=== PATIENT | male | born 1980 | race Caucasian/White ===

== ENCOUNTER → 2023-03-17 15:54 | Outpatient (CLI) | payer OTHER, SELFPAY ==
--- NOTE | ~2023-03-17 | XR_ITS ---
EXAMINATION: XR wrist LT min 3V DATE: 03/17/2023 16:06 INDICATION: Left wrist pain TECHNIQUE: Posteroanterior, ulnar deviation, oblique, and lateral views of the left wrist were obtain ed. COMPARISON: none FINDINGS: Alignment is normal. No fracture. Joint spaces are normal. Soft tissues are unremarkable. IMPRESSION: 1. Negative left wrist radiographs. Reviewed, dictated and finalized at location A.
== END ==
PROVIDERS: PCP Nurse Practitioner Family; Visit Provider Nurse Practitioner Family
DX: M25.539 Pain in unspecified wrist (principal)
CPT/HCPCS: 73110

== ENCOUNTER 2023-04-02 15:55 | Outpatient (CLI) | payer OTHER, SELFPAY ==
--- NOTE | ~2023-04-02 | MR_ITS ---
EXAMINATION: MR wrist LT wo con DATE: 04/02/2023 17:18 INDICATION: Left wrist pain TECHNIQUE: Magnetic resonance imaging (MRI) of the left wrist was performed without intravenous contr ast. Sequences performed include axial PD-weighted FSE and PD-weighted FS FSE, coronal PD-weighted FS FSE and T1-weighted SE, and sagittal PD-weighted FS FSE and PD-weighted FSE. COMPARISON: None FINDINGS: Intrinsic ligaments: Partial tear of the dorsal component of the scapholunate ligament. The central membranous component a nd femoral component appear normal. The lunotriquetral ligament is normal. Triangular fibrocartilage complex (TFCC): Partial tears of the foveal attachment of the triangular fibrocartilage complex. There is also a part ial tear of the radial side of the dorsal radioulnar ligament. Triangular fibrocartilage including in cluding its foveal and radial attachments as well as the volar radioulnar ligament are normal. The ex tensor carpi ulnaris tendon sheath is normal. Extensor wrist: There is mild increased signal situated between the thickened tendon sheath of the extensor carpi uln bria tendon distal to the level of the ulnar styloid process with the extensor carpi ulnaris tendon i s also mildly thickened consistent with tendinopathy and mild associated tenosynovitis. There appears be a longitudinal split tear of the tendon with increased signal extending linearly from the center of the tendon to the periphery at the level of the ulnar styloid process. Extensor tendons of the wri st are otherwise normal. Flexor wrist: The flexor tendons of the wrist are normal. No abnormality in the carpal tunnel with normal median n erve. Guyon's canal: Guyon's canal including the ulnar nerve and artery are normal. Bones/other: Bone alignment is normal. Normal marrow signal. No fracture, erosions, avascular necrosis or abnormal marrow replacing process. Mild osteoarthritis at the left wrist joint with partial-thickness cartila ge loss with chondral surface regularity along the proximal articular surface of the lunate. Addition al mild osteoarthritis at the first carpometacarpal joint. Deep to the extensor digitorum longus tend ons is a 3 x 2 mm ganglion cyst located dorsal to the junction of the midcarpal joint and scapholunat e articulation. IMPRESSION: 1. Partial tear of the dorsal component of the scapholunate ligament. 2. Partial tears of the ulnar styloid attachment and radial attachments of the triangular fibrocartil age complex as well as the radial attachment of the dorsal radioulnar ligament. 3. Mild extensor carpi ulnaris tenosynovitis and tendinopathy with small longitudinal split tear at t he level of the ulnar styloid process. 4. Mild osteoarthritis at the first carpal metacarpal and wrist joints with moderate grade chondral m alacia along the proximal lunate. 5. Tiny ganglion cyst deep to the extensor digitorum longus tendons at the dorsum of the carpus. Reviewed, dictated and finalized at location A. IMPRESSION: 1. Partial tear of the dorsal component of the scapholunate ligament. 2. Partial tears of the ulnar styloid attachment and radial attachments of the triangular fibrocartilage complex as well as the radial attachment of the dorsa l radioulnar ligament. 3. Mild extensor carpi ulnaris tenosynovitis and tendinopathy with small longit udinal split tear at the level of the ulnar styloid process. 4. Mild osteoarthritis at the first carpal metacarpal and wrist joints with mod erate grade chondral malacia along the proximal lunate. 5. Tiny ganglion cyst deep to the extensor digitorum longus tendons at the dors um of the carpus.
== END 2023-04-02 15:56 | disposition home or self-care (01) ==
PROVIDERS: PCP Nurse Practitioner Family; Visit Provider Nurse Practitioner Family
DX: S66.912A Strain of unspecified muscle, fascia and tendon at wrist and hand level, left hand, initial encounter (principal); M19.042 Primary osteoarthritis, left hand; M67.432 Ganglion, left wrist; X58.XXXA Exposure to other specified factors, initial encounter
CPT/HCPCS: 73221

== ENCOUNTER 2025-02-13 10:14 | Emergency (ER) | payer OTHER, SELFPAY ==
--- NOTE | ~2025-02-13 | CT_ITS ---
CLINICAL INDICATION: Right flank pain COMPARISON: None. TECHNIQUE: Multiple contiguous axial images of the abdomen and pelvis were performed without the admi nistration of intravenous contrast The dose-length product (DLP) was 369.10 mGy-cm. Automated exposure control and iterative reconstruction technique were employed. FINDINGS/OBSERVATIONS: Visualized lower thorax: The bilateral lung bases are clear. The heart is of normal size, without pericardial effusion. Liver: The liver demonstrates homogeneous attenuation and is not enlarged. Gallbladder and biliary system: The gallbladder is distended, and otherwise unremarkable. Pancreas: Limited evaluation of the pancreas secondary to the lack of intravenous contrast. Spleen: The spleen demonstrates homogeneous attenuation and is not enlarged. Kidneys: Global enlargement of the right kidney with moderate hydroureteronephrosis extending to the distal ri ght ureter where a 4 mm calculus is present. This is just proximal to the right ureterovesicular junction. Nonobstructing 5 mm calculus within the lower pole of the right kidney. The left kidney and ureter are unremarkable. Adrenal glands: Unremarkable. Gastrointestinal tract: Trace fecal stasis within the colon. Appendix: The appendix is not definitively visualized. However, no pericecal inflammatory change is identified suggest the presence of acute appendicitis. Vasculature: Unremarkable. Lymph nodes: Limited evaluation without intravenous contrast. Pelvic structures: The bladder is only minimally distended, and otherwise unremarkable. The prostate gland is not enlarged. Body wall and musculoskeletal: No significant degenerative disease within the lower thoracic or lumbosacral spine. IMPRESSION: Right-sided hydroureteronephrosis secondary to a 4 mm calculus at the right UVJ. Reviewed, dictated and finalized at location A. IMPRESSION: Right-sided hydroureteronephrosis secondary to a 4 mm calculus at the right UVJ .
[2025-02-13 10:42] VITALS: BP 128/78; PULSE 87; RESP 18; TEMP 36.8; O2SAT 100
[2025-02-13 11:18] LABS: Basophils Percent Auto 0.2 % (0.2-1.2); Hematocrit 43.7 % (42.0-52.0); Hemoglobin 14.1 g/dL (14.0-18.0); Immature Granulocyte Absolute 0.03 K/mm3 (0.00-0.031); Immature Granulocyte Percent A 0.4 % (0-0.5); Lymphocytes Absolute Auto 1.01 K/mm3 (0.9-3.2); Lymphocytes Percent Auto 12.4 % (18.3-44.2); Mean Corpuscular HGB Conc 32.3 g/dl (32-36); Mean Corpuscular Hemoglobin 29.1 pg (26-34); Mean Corpuscular Volume 90.3 fl (80-100); Mean Platelet Volume 9.5 fl (7.4-10.4); Monocytes Absolute Auto 0.4 K/mm3 (0.1-0.6); Monocytes Percent Auto 5.1 % (2.6-8.5); Neutrophils Absolute Auto 6.7 K/mm3 (1.3-6.7); Neutrophils Percent Auto 81.9 % (45.5-73.1); Platelet Count Result 267 k/mm3 (150-375); Red Blood Count 4.84 M/mm3 (4.6-6.20); Red Cell Distribution Width 12.3 % (11.5-14.5); White Blood Count 8.2 K/mm3 (4.5-10.0)
--- OUTSIDE RECORDS SUMMARY | 2025-02-13 11:23 | XMS_ITS | Clinical Summary ---
Author Organization [facility] Address [address] [place] [id number] Care Team Providers Care Family Day Care Provider Name Role Phone No, Physician Primary Care Provider [phone] Allergies No known active allergies Medications ibuprofen (ADVIL,MOTRIN) 400 mg tablet Take by mouth every 6 (six) hours as needed for pain Active meloxicam (MOBIC) 15 mg tablet Take 1 tablet (15 mg total) by mouth daily 30 tablet 06/17/2023 Active Active Problems Problem Noted Date Diagnosed Date Post-traumatic osteoarthritis of right knee 06/03 Assessment & Plan (11/08/2019 1:11 PM WOOD BUCKER): We discussed the risks, benefits and alternatives of treatment options for osteoarthritis of the knee. From least invasive to most invasive: The only thing to slow the progression of osteoarthritis is weight loss. For every pound lost 4 to 6 pounds of stress is relieved from the knee. Formal physical therapy to help with flexion, extension, mobility and strength. Unloading braces to unload the affected side. The possibility of TENs unit to control pain and swelling. Nonsteroidal anti-inflammatories with the potential of cardiac and GI upset. Steroid and Visco supplement injection. And eventual total knee arthroplasty. After going over the risks, benefits and alternatives he will continue with ice, ibuprofen but would like to proceed with a medial unloading brace to the right. Follow-up as needed Assessment & Plan (06/29/2019 1:10 PM CDT): We discussed the risks, benefits and alternatives of treatment options for osteoarthritis of the knee. From least invasive to most invasive: The only thing to slow the progression of osteoarthritis is weight loss. For every pound lost 4 to 6 pounds of stress is relieved from the knee. Formal physical therapy to help with flexion, extension, mobility and strength. Unloading braces to unload the affected side. The possibility of TENs unit to control pain and swelling. Nonsteroidal anti-inflammatories with the potential of cardiac and GI upset. Steroid and Visco supplement injection. And eventual total knee arthroplasty. Certainly not [id number] at this time. Would recommend an MRI based on his age and persistent pain. Follow-up after MRI. Has failed ibuprofen, Tylenol, ice, rest and bracing. 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 Immunizations Immunization Administration Dates Next Due Tdap 11/02/2010 Surgical History Surgery Date Site/Laterality Comments KNEE SURGERY 11/02/2000 - 11/01/2001 Right Medical History Medical History Date Comments Osteoarthritis Family History Medical History Relation Name Comments Prostate cancer Father Diabetes Maternal Grandmother Lung cancer Other Cancer Paternal Grandmother Relation Name Status Comments Father Maternal Grandmother Other Paternal Grandmother Social History Tobacco Use Types Packs/Day Years Used Date Smoking Tobacco: Every Day E-cigarettes Smokeless Tobacco: Never Alcohol Use Standard Drinks/Week Comments Yes 0 (1 standard drink = 0.6 oz pur e alcohol) socially Sex and Gender Information Value Date Recorded Sex Assigned at Not on file Legal Sex Male 12:01 PM WOOD BUCKER Gender Identity Not on file Sexual Orientation Not on file 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 Not on file Not on fi le Obstetrics History Last Filed Vital Signs Vital Sign Reading Time Taken Comments Blood Pressure 118/70 10/22/2016 10:35 AM WOOD BUCKER Pulse 74 10/22/2016 10:35 AM WOOD BUCKER Temperature - - Respiratory Rate - - Oxygen Saturation - - Inhaled Oxygen Concentration - - Weight 69.4 kg (153 lb) 11/08/2019 9:49 AM WOOD BUCKER Height 175.3 cm (5' 9 ) 11/08/2019 9:49 AM WOOD BUCKER Body Mass Index 22.59 11/08/2019 9:49 AM WOOD BUCKER Plan of Treatment Health Maintenance Due Date Last Done Comments Depression Screening 1981 Hepatitis C Screening 1981 Prostate Cancer Screening-PSA 1981 Varicella Vaccines (1 of 2 - 13+ 2-dose series) 1994 Hepatitis B Screening 1999 Regular Well Visit/Exam 18-64 1999 Pneumococcal vaccine <65 (1 of 2 - PCV) 2000 DTaP/Tdap/Td Vaccine (2 - Td or Tdap) 11/02/2020 11/02/2010 Influenza Vaccine (#1) 2024 HPV Vaccines Aged Out No longer eligi ble based on patient's age to complete this topic Insurance [facility] P[facility] Care Teams Family Day Care Provider Relationship Specialty Start Date End Date No, Physician PCP - General 06/20/19
--- OUTSIDE RECORDS SUMMARY | 2025-02-13 11:23 | XMS_ITS | Referral Summary ---
Author Organization [facility] at the [facility] Office Building Address [address] [place] [id number] Care Team Providers Care Lapeler Name Role Phone No, Physician Primary Care Provider [phone] Allergies No known active allergies Medications ibuprofen (ADVIL,MOTRIN) 400 mg tablet Take by mouth every 6 (six) hours as needed for pain Active meloxicam (MOBIC) 15 mg tablet Take 1 tablet (15 mg total) by mouth daily 30 tablet 06/17/2023 Active Active Problems Problem Noted Date Diagnosed Date Post-traumatic osteoarthritis of right knee 06/03 Assessment & Plan (11/08/2019 1:11 PM CHIEF OF FIELD OPERATIONS): We discussed the risks, benefits and alternatives [...] And eventual total knee arthroplasty. Certainly not [id number] at this time. Would recommend an MRI based on his age and persistent pain. Follow-up after MRI. Has failed ibuprofen, Tylenol, ice, rest and bracing. 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 PPO Care Teams Lapeler Relationship Specialty Start Date End Date No, Physician PCP - General 06/20/19
--- OUTSIDE RECORDS SUMMARY | 2025-02-13 11:23 | XMS_ITS | Clinical Summary ---
Author Organization [facility] Address [facility] [place] [address] Care Team Providers Care Scaffolder Name Role Phone Unavailable Primary Care Provider Unavailabl e Social History Tobacco Use Types Packs/Day Years Used Date Smoking Tobacco: Never Assessed Sex and Gender Information Value Date Recorded Sex Assigned at Not on file Legal Sex Male 6:10 PM CDT Gender Identity Not on file Sexual Orientation Not on file Plan of Treatment Health Maintenance Due Date Last Done Comments Annual Physical 1984 Hepatitis C 1999 Hepatitis B Vaccines (1 of 3 - 19+ 3-dose series) 2000 DTaP, Tdap and Td Vaccines ( 2 - Td or Tdap) 11/02/2020 11/02/2010 COVID-19 Vaccine ( - 2023-2 5 season) 2024 PHQ-2 (Physician [place]) 11/02/2024 HPV Vaccines Aged Out No longer eligi ble based on patient's age to complete this topic Meningococcal B Vaccine Aged Out No l onger eligible based on patient's age to complete this topic Meningococcal Vaccine Aged Out No thony daiana eligible based on patient's age to complete this topic Pneumococcal Vaccine: Pediat rics (0 to 5 Years) and At-Risk Patients (6 to 49 Years) Aged Out No longer eligi ble based on patient's age to complete this topic RSV Immunizations Under 20 Months Aged Out No longer eligible based on patient's age to complete this topic Insurance [facility]
[2025-02-13 11:24] LABS: Add Urine Microscopic? YES; Appearance Urine Clear (Clear); Bacteria Urine None Seen /hpf; Bilirubin Urine Negative (Negative); Blood Urine 2+ (Negative); Color Urine Yellow (Yellow); Glucose Urine UA Negative (Negative); Ketones Urine Trace mg/dL (Negative); Leukocyte Esterase Ur Negative LEU/UL (Negative); Nitrate Urine Negative (Negative); Non Pathogenic Casts 0-2; Protein Urine Trace mg/dL (Negative); RBC Urine 51-100 /hpf (0-2); Specific Grav Ur 1.031 (1.001-1.035); Squamous Epithelial Cell Urine None Seen /hpf (Few); Urobilinogen Urine 0.2 mg/dL (<2.0); WBC Urine 0-5 /hpf (0-3); pH Urine 6.5 (5.0-9.0)
[2025-02-13 11:37] LABS: Alanine Aminotransferase 32 U/L (6-50); Albumin Level 4.8 g/dL (3.5-5.1); Alkaline Phosphatase 127 U/L (38-126); Anion Gap 11 mmol/L (4-12); Aspartate Amino Transferase 41 U/L (17-59); Bilirubin,Total 0.7 mg/dL (0.2-1.3); Blood Urea Nitrogen 22 mg/dL (9-20); Calcium 9.5 mg/dL (8.4-10.2); Carbon Dioxide 26 mmol/L (22-30); Chloride 102 mmol/L (98-107); Estimated CRCL calculation 80 ml/min; Estimated Glomerular Filt Rate > 60; Glucose 116 mg/dL (65-110); Lipase 49 U/L (23-300); Potassium 4.3 mmol/L (3.4-5.0); Sodium 139 mmol/L (137-145)
--- NOTE | 2025-02-13 12:19 | ED.ABDPAIN ---
HPI - Abdominal Pain General Chief Complaint: Abdominal Pain Stated Complaint: right flank pain Time Seen by Provider: 02/13/25 10:51 Source: patient Mode of arrival: ambulatory Limitations: no limitations History of Present Illness HPI narrative: Patient is a 44-year-old male who presents the ED with report of right flank pain. Patient reports he woke up this morning and had some discomfort in his right flank region. Thought he may have strained his back. Went to urinate and reported having slight pressure with urination. He attempted to lay back down, but developed worsening pain in his right flank region, difficulty finding a comfortable position. Pain did radiate around to his right lower abdomen at one point. He reports slight dysuria with subsequent urination. Denies hematuria. Reported some nausea associated with pain, denies vomiting. Denies fevers. No previous history of kidney stones. He did take ibuprofen for the pain earlier and pain is improved slightly currently. Related Data Allergies Allergy/AdvReac Type Severity Reaction Status Date / Time No Known Allergies Allergy Mild Verified 02/13/25 11:06 Review of Systems Review of Systems: All systems reviewed & are unremarkable except as noted in HPI. All systems reviewed & are unremarkable except as noted in HPI and below PMFSH Past Medical History Medical History BMI 26.0-26.9,adult Surgical History Surgical History H/O knee surgery History of appendectomy Family History Family History Father Malignant neoplasm of prostate Mother No problems noted. Sibling No problems noted. Other Carcinoma of colon Cerebrovascular accident Diabetes mellitus Family history of arthritis Family history of lung cancer Family history of malignant neoplasm Hypertension Social History Social History Smoking status: Former smoker Tobacco type: cigarettes and e-cigarettes/vaping Second hand tobacco smoke exposure: Yes Alcohol intake: current Substance use: never Substance use type: does not use Lack of Transportation: No Lack of Food: Never True Current Housing: I Have Housing Concerned About Future Housing: No Difficulty Paying Gas/Electric Bills: No Difficulty Paying for Meds: No Currently Unemployed: No Education: High School Diploma/GED Difficulty w/ Childcare or Family Care: No Living arrangements: with family Occupation/Education: occupation 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 Gender identity (if verbalized by the patient): Male Exam Narrative: GENERAL: Well appearing, well-nourished, non-toxic, in no acute distress. HEAD: Normocephalic, atraumatic. RESPIRATORY: Airway patent, respirations nonlabored. Clear to auscultation bilaterally, no rales, rhonchi, wheezing. CARDIOVASCULAR: Regular rate and rhythm without murmurs, rubs, or gallops. ABDOMINAL: Soft, minimal discomfort in RLQ, nondistended. Normoactive BS. No significant CVA tenderness. MUSCULOSKELETAL: Moves all extremities. No gross deformities. SKIN: Warm, dry, normal color. NEURO: A&O X3. Speech clear. Cranial nerves II-XII grossly intact. Steady gait. No ataxic movements. PSYCHIATRIC: Appropriate mood and affect. Normal interaction. Course Vital Signs Vital signs: Vital Signs Temperature 98.2 F 02/13/25 10:42 Pulse Rate 87 02/13/25 10:42 Respiratory Rate 18 02/13/25 10:42 Blood Pressure 128/78 02/13/25 10:42 Pulse Oximetry 100 02/13/25 10:42 Oxygen Delivery Room Air 02/13/25 10:42 Temperature 98.2 F 02/13/25 10:42 Pulse Rate 87 02/13/25 10:42 Respiratory Rate 18 02/13/25 10:42 Blood Pressure 128/78 02/13/25 10:42 Pulse Oximetry 100 02/13/25 10:42 Oxygen Delivery Room Air 02/13/25 10:42 MDM - Abdominal Pain MDM Narrative Medical decision making narrative: Patient presented to ED with right flank pain, right lower quadrant pain, slight discomfort with urination. Vital signs stable upon arrival. Patient reports pain is markedly improved upon my evaluation. He did take ibuprofen earlier today. He is resting comfortably upon my evaluation. No previous history of kidney stones. Cbc without leukocytosis or anemia. CMP is unremarkable. Stable kidney function. UA with hematuria, no signs of infection, concerning for kidney stone. CT of the abdomen/pelvis was obtained and showing 4 mm distal right UVJ stone. Consistent with exam and clinical picture. Discussed lab and imaging findings with patient. He has remained stable throughout ED stay. Has not required any pain medication. Feel he is safe for discharge home with outpatient follow-up. Offered pain medication here, however he declined. Will send home with Abisai Marvin Flomax, strainer. Given 1st dose of Flomax in the ED. Advised to follow-up with urology for further evaluation. Advised to stay well hydrated. Given strict return precautions. Patient in agreement with plan. Discharged in stable condition. Medical Records Attestation: I reviewed the patient's medical records. Lab Data Attestation: I reviewed the patient's lab results. 02/13/25 11:05 02/13/25 11:05 Labs: Lab Results 02/13/25 Range/Units 11:05 WBC 8.2 (4.5-10.0) K/mm3 RBC 4.84 (4.6-6.20) M/mm3 Hgb 14.1 (14.0-18.0) g/dL Hct 43.7 (42.0-52.0) % MCV 90.3 (80-100) fl MCH 29.1 (26-34) pg MCHC 32.3 (32-36) g/dl RDW 12.3 (11.5-14.5) % Plt Count 267 (150-375) k/mm3 MPV 9.5 (7.4-10.4) fl Immature Gran % (Auto) 0.4 (0-0.5) % Neut % (Auto) 81.9 H (45.5-73.1) % Lymph % (Auto) 12.4 L (18.3-44.2) % [place] % (Auto) 5.1 (2.6-8.5) % Eos % (Auto) 0.0 (0-4.4) % Baso % (Auto) 0.2 (0.2-1.2) % Lymph # (Auto) 1.01 (0.9-3.2) K/mm3 [place] # (Auto) 0.4 (0.1-0.6) K/mm3 Eos # (Auto) 0.0 (0-0.3) K/mm3 Baso # (Auto) 0.0 (0.0-0.1) K/mm3 Abs Immat Gran (auto) 0.03 (0.00-0.031) K/mm3 Absolute Neuts (auto) 6.7 (1.3-6.7) K/mm3 Absolute Nucleated RBC 0.000 (0.0-0.012) K/mm3 Nucleated RBC % 0.0 (0.0-0.2) % Sodium 139 (137-145) mmol/L Potassium 4.3 (3.4-5.0) mmol/L Chloride 102 (98-107) mmol/L Carbon Dioxide 26 (22-30) mmol/L Anion Gap 11 (4-12) mmol/L BUN 22 H (9-20) mg/dL Creatinine 1.09 (0.7-1.3) mg/dL Estim Creat Clear Calc 80 ml/min Estimated GFR > 60 (59 - ) Glucose 116 H (65-110) mg/dL Calcium 9.5 (8.4-10.2) mg/dL Total Bilirubin 0.7 (0.2-1.3) mg/dL AST 41 (17-59) U/L ALT 32 (6-50) U/L Alkaline Phosphatase 127 H (38-126) U/L Total Protein 7.0 (6.3-8.2) g/dL Albumin 4.8 (3.5-5.1) g/dL Lipase 49 (23-300) U/L Urine Color Yellow (Yellow) Urine Appearance Clear (Clear) Urine pH 6.5 (5.0-9.0) Ur Specific [place] 1.031 (1.001-1.035) Urine Protein Trace (Negative) mg/dL Urine Glucose (UA) Negative (Negative) mg/dL Urine Ketones Trace H (Negative) mg/dL Ur Blood (Man) 2+ H (Negative) Urine Nitrate Negative (Negative) Urine Bilirubin Negative (Negative) Urine Urobilinogen 0.2 (<2.0) mg/dL Leukocyte Esterase Rfl Negative (Negative) [place]/UL Urine RBC 51-100 H (0-2) /hpf Urine WBC 0-5 (0-3) /hpf Ur Squamous Epith Cells None seen (Few) /hpf Urine Bacteria None seen /hpf Urine Casts 0-2 Imaging Data Attestation: I personally reviewed and interpreted this imaging study as follows: Radiologist's impression: ITS Impressions Abdomen/Pelvis CT 02/13/25 11:56 IMPRESSION: Right-sided hydroureteronephrosis secondary to a 4 mm calculus at the right UVJ. Discharge Plan Discharge Clinical Impression: Calculus of distal right ureter, Hydroureteronephrosis Patient Disposition: Home Condition: Stable Instructions: Antibiotic Form, Kidney Stones (ED), Flank Pain (ED) Additional Instructions: Take Flomax daily as prescribed. Continue Tylenol and Ibuprofen as needed for pain. [place] as needed for more severe pain. Zofran for nausea. Stay well hydrated. Strain urine to attempt to collect stone. Recommend following up with primary care doctor and Urology for further evaluation. Call office make appointment. Return to the ED if you experience worsening or severe pain, unable to keep down food/drink, fevers, uncontrollable nausea/vomiting, unable to urinate, or any other symptoms of concern. Patient Language: Estonian Prescriptions: New hydrocodone-acetaminophen 5-325 mg tablet 1 tablet PO Q6H PRN (Reason: pain) Qty: 15 0RF tamsulosin [Flomax] 0.4 mg capsule 0.4 mg PO DAILY Qty: 7 0RF ondansetron 4 mg tablet,disintegrating 4 mg PO Q8H PRN (Reason: nausea and vomiting) Qty: 15 0RF Follow-up/Referrals: Julio Cesar Wagoner MD [Physician] - (UROLOGY) PHYSICIAN,LINEMAN APPRENTICE [Primary Care Provider] - Tk Jules MD [Physician] - (PRIMARY CARE) Time of Disposition: 13:00
--- OUTSIDE RECORDS SUMMARY | 2025-02-13 12:38 | XMS_ITS | Clinical Summary ---
Author Organization [facility] Address [facility] [place] [address] Care Team Providers Care Hotel Registration Clerk Name Role Phone Unavailable Primary Care Provider [...] - 2023-2 5 season) 2024 PHQ-2 (Physician [place]) 11/02/2024 HPV Vaccines Aged Out No longer [...] patient's age to complete this topic Insurance [facility]
== END 2025-02-13 13:25 | disposition home or self-care (01) ==
PROVIDERS: Emergency Provider Physician Assistant
DX: N13.2 Hydronephrosis with renal and ureteral calculous obstruction (principal); Z87.891 Personal history of nicotine dependence
CPT/HCPCS: 36415; 74176; 80053; 81001; 83690; 85025; 99284

== ENCOUNTER 2025-02-15 13:46 | Emergency (ER) | payer OTHER, SELFPAY ==
--- NOTE | ~2025-02-15 | XR_ITS ---
XR abdomen/kub 1V 02/15/2025 14:19 INDICATION: Right flank pain. Ureteral stone. TECHNIQUE: KUB COMPARISON: CT dated 02/13/2025 FINDINGS: Bowel gas pattern is normal. There is no evidence of free air, mass, organomegaly, ascites or obstruction. There is a right pelvic calcification, consistent with either UVJ or bladder stone. There are left pelvic phleboliths. The bones appear intact. IMPRESSION: 1: Small calcification right pelvis which may represent a UVJ or bladder stone measuring 3 mm.. Reviewed, dictated and finalized at location B.
[2025-02-15 13:50] VITALS: BP 118/87; PULSE 74; RESP 16; TEMP 36.6; O2SAT 100
--- NOTE | 2025-02-15 13:57 | ED_ITS ---
HPI - Male Genitourinary General Chief complaint: Urogenital-Male Stated complaint: Lower right abdominal and lower back pain Time Seen by Provider: 02/15/25 15:05 Focused HPI: 44-year-old male presents to emergency department for right flank pain and right-sided abdominal pain. Patient was seen in our ED 2 days ago for the same symptoms and diagnosed with right-sided ureteral stone and nephrolithiasis. Discharged with Hostetter, Zofran and Flomax. Has been taking Flomax as directed, took Hostetter once yesterday but has not taken it today. States he has a taking ibuprofen with improvement. Presents today because he wants to know where his kidney stones are. States he has been having colicky pain to the right flank and right abdomen and is concerned that the stone in his kidney has dropped into his ureter. He states the pain has not necessarily worsened but it has just become more frequent. He is uncertain if he passed any stones. He denies dysuria, hematuria, fevers, vomiting. Has had some nausea when the pain occurs. GENERAL: Well-appearing, well-nourished, and in no acute distress. HEAD: Normocephalic, atraumatic. CHEST: Clear to auscultation. ?No respiratory distress. HEART: Regular rate and rhythm.? NEURO: ?Alert and oriented x3. Patient screened in triage and initial orders placed.? ?Additional care and disposition to be based upon?diagnostic testing and treatment. Related Data Allergies Allergy/AdvReac Type Severity Reaction Status Date / Time No Known Allergies Allergy Mild Verified 02/15/25 13:47 Review of Systems Review of Systems: All systems reviewed & are unremarkable except as noted in HPI and below PMFSH Past Medical History Medical History BMI 26.0-26.9,adult Surgical History Surgical History H/O knee surgery History of appendectomy Family History Family History Father Malignant neoplasm of prostate Mother No problems noted. Sibling No problems noted. Other Carcinoma of colon Cerebrovascular accident Diabetes mellitus Family history of arthritis Family history of lung cancer Family history of malignant neoplasm Hypertension Social History Social History Smoking status: Former smoker Tobacco type: cigarettes and e-cigarettes/vaping Second hand tobacco smoke exposure: Yes Alcohol intake: current Substance use: never Substance use type: does not use Lack of Transportation: No Lack of Food: Never True Current Housing: I Have Housing Concerned About Future Housing: No Difficulty Paying Gas/Electric Bills: No Difficulty Paying for Meds: No Currently Unemployed: No Education: High School Diploma/GED Difficulty w/ Childcare or Family Care: No Living arrangements: with family Occupation/Education: occupation 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 Gender identity (if verbalized by the patient): Male Exam Narrative: GENERAL: Well-appearing, well-nourished, and in no acute distress. HEAD: Normocephalic, atraumatic. EYES:EOMI. ENT: Nares clear, no rhinorrhea or epistaxis. Mucous membranes moist. NECK: Supple. CHEST: Clear to auscultation. No respiratory distress. HEART: Regular rate and rhythm. No murmur heard. Normal peripheral pulses. ABDOMEN: Soft, nontender, nondistended, normal active bowel sounds. No rebound, guarding or rigidity. No CVA tenderness EXTREMITIES: Normal range of motion. No edema. SKIN: Warm, dry, no rash. NEURO: No focal deficits. Alert and oriented x3 Course Vital Signs Vital signs: Vital Signs Temperature 98 F 02/15/25 13:50 Pulse Rate 74 02/15/25 13:50 Respiratory Rate 16 02/15/25 13:50 Blood Pressure 118/87 02/15/25 13:50 Pulse Oximetry 100 02/15/25 13:50 Temperature 98 F 02/15/25 13:50 Pulse Rate 78 02/15/25 16:10 Respiratory Rate 16 02/15/25 16:10 Blood Pressure 112/69 02/15/25 16:10 Pulse Oximetry 97 02/15/25 16:10 MDM - Male Genitourinary MDM Narrative Medical decision making narrative: 44-year-old male presents to emergency department for intermittent, colicky and more frequent right flank and abdominal pain after being diagnosed with a 4 mm calculus at the right UVJ 2 days ago and a 5 mm calculus in the lower pole of the right kidney. Triage vitals are stable. Patient initially had intermittent right-sided abdominal pain and flank pain but at the time of my evaluation states his pain is resolved. Urinalysis obtained which shows trace leuk esterase, no bacteria, no white blood cells, no nitrates. He denies dysuria or hematuria. KUB shows a small calcification in the right pelvis which may represent a UVJ or bladder stone measuring 3 mm. Patient declined lab work due to needle phobia. Overall, patient is afebrile and well appearing under evaluation. Pain has resolved. Abdomen is soft and nontender. He is afebrile. Discussed without b lood work I cannot rule out JESUS or complications from obstructive uropathy/JESUS including electrolyte derangements and life-threatening cardiac arrhythmias. Pt verbalizes understanding of these risks and would like to go home. I advised him to take his Hostetter as directed as needed for breakthrough pain, continue ibuprofen for pain and continue Flomax as directed. Advised him to schedule an appointment urology and discussed strict ED return precautions including signs or symptoms of JESUS, anuria, septic ureteral stone, intractable pain despite use of pain medications. He and his are agreeable with the plan verbalized understanding. Discharged in stable condition. Lab Data Labs: Lab Results 02/15/25 Range/Units 15:03 Urine Color Yellow (Yellow) Urine Appearance Clear (Clear) Urine pH 7.0 (5.0-9.0) Ur Specific [place] 1.009 (1.001-1.035) Urine Protein Negative (Negative) mg/dL Urine Glucose (UA) Negative (Negative) mg/dL Urine Ketones Negative (Negative) mg/dL Ur Blood (Man) Trace (Negative) Urine Nitrate Negative (Negative) Urine Bilirubin Negative (Negative) Urine Urobilinogen 0.2 (<2.0) mg/dL Leukocyte Esterase Rfl Trace H (Negative) DALTON/UL Urine RBC 0-2 (0-2) /hpf Urine WBC 0-5 (0-3) /hpf Ur Squamous Epith Cells None seen (Few) /hpf Urine Bacteria None seen /hpf Urine Casts 0-2 Discharge Plan Discharge Clinical Impression: Calculus of distal right ureter Patient Disposition: Home Condition: Stable Instructions: Antibiotic Form, Ureteral Stones (ED) Additional Instructions: Your evaluated in the emergency department for right flank and abdominal pain. The x-ray of her abdomen shows a 3 mm stone at the distal ureter. We discussed obtaining lab work to determine her kidney function however you declined. Please take the Flomax as directed, take ibuprofen as needed for pain and hydrocodone as needed for breakthrough pain. Follow-up closely with a urologist. Return to the emergency department if you develop a fever, significantly worsening pain, your unable to urinate, you develop burning with urination, you are unable to tolerate food or fluids, or other concerning symptoms. Patient Language: Salvadorean Prescriptions: No Action hydrocodone-acetaminophen 5-325 mg tablet 1 tablet PO Q6H PRN (Reason: pain) Qty: 15 0RF tamsulosin [Flomax] 0.4 mg capsule 0.4 mg PO DAILY Qty: 7 0RF ondansetron 4 mg tablet,disintegrating 4 mg PO Q8H PRN (Reason: nausea and vomiting) Qty: 15 0RF Follow-up/Referrals: Lelo Corado MD [Physician] - PHYSICIAN,CUSTOMER SERVICE ATTENDANT [Non-Staff] -
--- NOTE | 2025-02-15 14:23 | PC.NURSE ---
pt refused blood work in triage.
--- OUTSIDE RECORDS SUMMARY | 2025-02-15 14:58 | XMS_ITS | Referral Summary ---
Author Organization [facility] Address [address] [place] [id number] Care Team Providers Care Mule Rider Name Role Phone No, Physician Primary Care Provider [phone] Allergies No known active allergies Medications ibuprofen (ADVIL,MOTRIN) 400 mg tablet Take by mouth every 6 (six) hours as needed for pain Active meloxicam (MOBIC) 15 mg tablet Take 1 tablet (15 mg total) by mouth daily 30 tablet 06/17/2023 Active Active Problems Problem Noted Date Diagnosed Date Post-traumatic osteoarthritis of right knee 06/03 Assessment & Plan (11/08/2019 1:11 PM VAMPER): We discussed the risks, benefits and alternatives [...] And eventual total knee arthroplasty. Certainly not [id number] at this time. 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
--- OUTSIDE RECORDS SUMMARY | 2025-02-15 14:58 | XMS_ITS | Clinical Summary ---
Author Organization [facility] Address [facility] [place] [address] Care Team Providers Care Coffee Urn Attendant Name Role Phone Unavailable Primary Care Provider [...] - 2023-2 5 season) 2024 PHQ-2 (Physician [place]) 11/02/2024 HPV Vaccines Aged Out No longer [...] patient's age to complete this topic Insurance [facility]
--- OUTSIDE RECORDS SUMMARY | 2025-02-15 14:58 | XMS_ITS | Clinical Summary ---
Author Organization [facility] Address [address] [place] [phone] Care Team Providers Care Piano Builder Name Role Phone No, Physician Primary Care Provider [phone] Allergies No known active allergies Medications ibuprofen (ADVIL,MOTRIN) 400 mg tablet Take by mouth every 6 (six) hours as needed for pain Active meloxicam (MOBIC) 15 mg tablet Take 1 tablet (15 mg total) by mouth daily 30 tablet 06/17/2023 Active Active Problems Problem Noted Date Diagnosed Date Post-traumatic osteoarthritis of right knee 06/03 Assessment & Plan (11/08/2019 1:11 PM PROBATE LAWYER): We discussed the risks, benefits and alternatives [...] And eventual total knee arthroplasty. Certainly not [id number] at this time. 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 Not on file Not on fi le Obstetrics History Last Filed Vital Signs Vital Sign Reading Time Taken Comments Blood Pressure 118/70 10/22/2016 10:35 AM PROBATE LAWYER Pulse 74 10/22/2016 10:35 AM PROBATE LAWYER Temperature - - Respiratory Rate - - Oxygen Saturation - - Inhaled Oxygen Concentration - - Weight 69.4 kg (153 lb) 11/08/2019 9:49 AM PROBATE LAWYER Height 175.3 cm (5' 9 ) 11/08/2019 9:49 AM PROBATE LAWYER Body Mass Index 22.59 11/08/2019 9:49 AM PROBATE LAWYER Plan of Treatment Health Maintenance Due Date [...] patient's age to complete this topic Insurance [facility] P[facility] Care Teams Piano Builder Relationship Specialty Start Date End Date No, Physician PCP - General 06/20/19
--- NOTE | 2025-02-15 15:01 | PC.NURSE ---
Pt. refused basic blood work.
[2025-02-15 15:12] LABS: Add Urine Microscopic? YES; Appearance Urine Clear (Clear); Bacteria Urine None Seen /hpf; Bilirubin Urine Negative (Negative); Blood Urine Trace (Negative); Color Urine Yellow (Yellow); Glucose Urine UA Negative (Negative); Ketones Urine Negative (Negative); Leukocyte Esterase Ur Trace LEU/UL (Negative); Nitrate Urine Negative (Negative); Non Pathogenic Casts 0-2; Protein Urine Negative (Negative); RBC Urine 0-2 /hpf (0-2); Specific Grav Ur 1.009 (1.001-1.035); Squamous Epithelial Cell Urine None Seen /hpf (Few); Urobilinogen Urine 0.2 mg/dL (<2.0); WBC Urine 0-5 /hpf (0-3)
--- NOTE | 2025-02-15 15:50 | PC.NURSE ---
PA at bedside updating pt. and visitor.
--- NOTE | 2025-02-15 16:09 | PC.NURSE ---
Pt. passed kidney stone just prior to d/c.
[2025-02-15 16:10] VITALS: BP 112/69; PULSE 78; RESP 16; O2SAT 97
--- OUTSIDE RECORDS SUMMARY | 2025-02-15 16:26 | XMS_ITS | Clinical Summary ---
Author Organization [facility] Address [facility] [place] [address] Care Team Providers Care Director Of Provider Relations Name Role Phone Unavailable Primary Care Provider [...] - 2023-2 5 season) 2024 PHQ-2 (Physician [place]) 11/02/2024 HPV Vaccines Aged Out No longer [...] patient's age to complete this topic Insurance [facility]
--- OUTSIDE RECORDS SUMMARY | 2025-02-15 16:26 | XMS_ITS | Referral Summary ---
Author Organization [facility] Address [address] [place] [phone] Care Team Providers Care Fan Blade Truer Name Role Phone No, Physician Primary Care Provider [phone] Allergies No known active allergies Medications ibuprofen (ADVIL,MOTRIN) 400 mg tablet Take by mouth every 6 (six) hours as needed for pain Active meloxicam (MOBIC) 15 mg tablet Take 1 tablet (15 mg total) by mouth daily 30 tablet 06/17/2023 Active Active Problems Problem Noted Date Diagnosed Date Post-traumatic osteoarthritis of right knee 06/03 Assessment & Plan (11/08/2019 1:11 PM REPAIR TABLE OPERATOR): We discussed the risks, benefits and alternatives [...] And eventual total knee arthroplasty. Certainly not [id number] at this time. 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 Not on file Not on fi le Last Filed Vital Signs Vital Sign Reading Time Taken Comments Blood Pressure 118/70 10/22/2016 10:35 AM REPAIR TABLE OPERATOR Pulse 74 10/22/2016 10:35 AM REPAIR TABLE OPERATOR Temperature - - Respiratory Rate - - Oxygen Saturation - - Inhaled Oxygen Concentration - - Weight 69.4 kg (153 lb) 11/08/2019 9:49 AM REPAIR TABLE OPERATOR Height 175.3 cm (5' 9 ) 11/08/2019 9:49 AM REPAIR TABLE OPERATOR Body Mass Index 22.59 11/08/2019 9:49 AM REPAIR TABLE OPERATOR Plan of Treatment Not on file Insurance [facility] PPO Care Teams Fan Blade Truer Relationship Specialty Start Date End Date No, Physician PCP - General 06/20/19
--- OUTSIDE RECORDS SUMMARY | 2025-02-15 16:26 | XMS_ITS | Clinical Summary ---
Author Organization [facility] at [facility] Address [address] [place] [id number] Care Team Providers Care Talent Acquisition Partner Name Role Phone No, Physician Primary Care Provider [phone] Allergies No known active allergies Medications ibuprofen (ADVIL,MOTRIN) 400 mg tablet Take by mouth every 6 (six) hours as needed for pain Active meloxicam (MOBIC) 15 mg tablet Take 1 tablet (15 mg total) by mouth daily 30 tablet 06/17/2023 Active Active Problems Problem Noted Date Diagnosed Date Post-traumatic osteoarthritis of right knee 06/03 Assessment & Plan (11/08/2019 1:11 PM BALLISTIC TECHNICIAN): We discussed the risks, benefits and alternatives [...] And eventual total knee arthroplasty. Certainly not [id number] at this time. 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 Not on file Not on fi le Obstetrics History Last Filed Vital Signs Vital Sign Reading Time Taken Comments Blood Pressure 118/70 10/22/2016 10:35 AM BALLISTIC TECHNICIAN Pulse 74 10/22/2016 10:35 AM BALLISTIC TECHNICIAN Temperature - - Respiratory Rate - - Oxygen Saturation - - Inhaled Oxygen Concentration - - Weight 69.4 kg (153 lb) 11/08/2019 9:49 AM BALLISTIC TECHNICIAN Height 175.3 cm (5' 9 ) 11/08/2019 9:49 AM BALLISTIC TECHNICIAN Body Mass Index 22.59 11/08/2019 9:49 AM BALLISTIC TECHNICIAN Plan of Treatment Health Maintenance Due Date Last Done Comments Depression Screening 1981 Hepatitis C Screening 1981 Prostate Cancer Screening-PSA 1981 Varicella Vaccines (1 of 2 - 13+ 2-dose series) 1994 Hepatitis B Screening 1999 Regular Well Visit/Exam 18-64 1999 Pneumococcal vaccine <65 (1 of 2 - PCV) 2000 DTaP/Tdap/Td Vaccine (2 - Td or Tdap) 11/02/2020 11/02/2010 Influenza Vaccine (Season Ended) 2025 HPV Vaccines Aged Out No longer eligi ble based on patient's age to complete this topic Insurance [facility] P[facility] Care Teams Talent Acquisition Partner Relationship Specialty Start Date End Date No, Physician PCP - General 06/20/19
== END 2025-02-15 16:12 | disposition home or self-care (01) ==
PROVIDERS: Emergency Provider Physician Assistant
DX: N13.2 Hydronephrosis with renal and ureteral calculous obstruction (principal); Z87.891 Personal history of nicotine dependence
CPT/HCPCS: 74018; 81001; 99283